=== PATIENT | female | born 1985 | race Caucasian/White ===

== ENCOUNTER 2020-11-15 12:32 | Observation (INO) | payer BC ==
[~2020-11-15] VITALS: Ht 154.9 cm; Wt 113.2 kg
[2020-11-15 14:16] LABS: BASO % 0.7 % (0.0-2.0); EOS # 0.1 (0.0-0.7); EOS % 1.3 % (0-4.0); GRAN # 3.7 (1.4-6.5); GRAN % 68.4 % (42.2-75.2); HEMOGLOBIN 11.1 g/dl (12.5-16.0); LYMPH # 1.4 (1.2-3.4); MEAN CELL VOLUME 83 fl (80.0-100.0); MEAN CORPUSCULAR HEMOGLOBIN 27 pg (27.0-31.0); MEAN CORPUSCULAR HGB CONC 33 g/dl (33.0-37.0); MEAN PLATELET VOLUME 9.5 fl (7.4-10.4); MONO # 0.2 (0.1-0.6); MONO % 4.4 % (1.7-9.3); PLATELET COUNT 271 K/mm3 (130-400); RED BLOOD COUNT 4.12 M/mm3 (4.10-5.30); REDCELL DISTRIBUTION WIDTH-CV 14.3 % (11.5-14.5)
[2020-11-15 14:17] LABS: HEMATOCRIT 34.1 % (37.0-47.0)
[2020-11-15 14:24] LABS: CALCIUM 9.3 mg/dL (8.4-10.2); CREATININE, serum 0.75 (0.52-1.25); POTASSIUM 3.9 mmol/L (3.4-5.0)
[2020-11-15 15:26] LABS: MUCOUS Present /lpf; PH 5 (5-8); URINE APPEARANCE Hazy; URINE BACTERIA Rare /hpf; URINE BILIRUBIN Negative (NEGATIVE); URINE BLOOD 2+ (NEGATIVE); URINE COLOR Yellow; URINE GLUCOSE Negative (NEGATIVE); URINE KETONE Negative (NEGATIVE); URINE LEUKOCYTE ESTERASE 3+ (NEGATIVE); URINE NITRATE Negative (NEGATIVE); URINE PROTEIN(semi-quant) Negative (NEGATIVE); URINE UROBILINOGEN Negative (NEGATIVE); URINE WBC 20-50 /hpf
[2020-11-15 15:34] LABS: COLLECTION METHOD CLEAN CATCH
[2020-11-15] MEDS ORDERED: PRILOSEC 20MG20 MG PO (16:48)
[2020-11-15] MEDS ORDERED: ERGOCALCIFER50000 IU PO (16:49)
[2020-11-15] MEDS ORDERED: ROBAXIN 50500 MG/TAB PO (16:49)
[2020-11-15] MEDS ORDERED: VIVLODEX5 MG PO (17:29)
[2020-11-15] MEDS ORDERED: CYANOCOBAL1000 MCG/1 IM (17:29)
[2020-11-15] MEDS ORDERED: WELLBUTRIN SR100 M1 PO (17:30)
--- NOTE | 2020-11-15 19:30 | NUR ---
Patient assessed at this time. Alert and oriented x 4, and able to make needs known. Reported level 3 pain to right buttock, radiating down right leg. Given PRN Motrin. Peripheral INT to right AC. Denies having SOB and dyspnea. LS CTA. Respirations even and unlabored. HRR. Capillary refill less than 3 seconds. Non-tenting skin turgor. BSAx4. Abdomen soft and non-tender. 1+ edema BLE. Voices no questions, needs, or concerns at this time. Resting in bed with call light within reach.
[2020-11-15 20:04] VITALS: BP 101/48; PULSE 75; TEMP 97.9
[2020-11-16 00:28] VITALS: BP 95/48; PULSE 63; TEMP 98.4
--- NOTE | 2020-11-16 02:05 | NUR ---
Patient complaining of pain to right buttock/hip/leg. Given PRN Morphine as requested for pain.
[2020-11-16 04:41] VITALS: BP 95/42; PULSE 60; TEMP 97.3
[2020-11-16 04:45] VITALS: BP 102/54
--- NOTE | 2020-11-16 04:52 | NUR ---
Patient got up to use bedside commode with one assist. Patient in excruciating pain with movement. Given PRN Morphine and Motrin at this time. Did report that Morphine earlier helped until she moved. Voices no further questions, needs, or concerns at this time. Resting in bed with call light within reach.
--- NOTE | 2020-11-16 05:55 | NUR ---
Patient received PRN pain medication as requested for pain this shift. Voices no questions, needs, or concerns at this time. Resting in bed with call light within reach.
[2020-11-16 07:17] VITALS: BP 102/45; PULSE 63; TEMP 97.9
[2020-11-16 07:57] LABS: HEMOGLOBIN 11.1 g/dl (12.5-16.0); MEAN CELL VOLUME 85 fl (80.0-100.0); MEAN CORPUSCULAR HEMOGLOBIN 27 pg (27.0-31.0); MEAN CORPUSCULAR HGB CONC 32 g/dl (33.0-37.0); MEAN PLATELET VOLUME 9.6 fl (7.4-10.4); PLATELET COUNT 255 K/mm3 (130-400); RED BLOOD COUNT 4.11 M/mm3 (4.10-5.30); REDCELL DISTRIBUTION WIDTH-CV 14.6 % (11.5-14.5)
[2020-11-16 08:01] LABS: HEMATOCRIT 34.9 % (37.0-47.0)
[2020-11-16 08:11] LABS: CALCIUM 9.1 mg/dL (8.4-10.2); CREATININE, serum 0.8 (0.52-1.25); POTASSIUM 4.2 mmol/L (3.4-5.0)
--- NOTE | 2020-11-16 09:02 | NUR ---
Initial visit; Patient thanked Lidar Analyst for offering encouragement and God's blessings.
--- NOTE | 2020-11-16 09:19 | NUR ---
AM SHIFT ASSESSMENT COMPLETED AT THIS TIME. MORNING MEDICATIONS ADMINISTERED BY SEWING DEPARTMENT SUPERVISOR. WILL CONTINUE TO MONITOR.
--- NOTE | 2020-11-16 12:02 | NUR ---
VENKATA met with the patient to discuss discharge plan. The patient lives in [place] with her , Mini (ph#[phone]), and three children. She reports independence with ADLs and does not have any DME. The patient's primary care provider is ANKIT Wells and she receives her medications from [facility]. She reports no difficulties obtaining her meds. The patient does not have a DPOA-HC, but she was interested in obtaining a form. VENKATA provided. The patient plans to return home with her family upon discharge. She states that OT worked with her and thought that she could benefit from a walker. VENKATA informed the patient on where she can obtain a walker. The patient states that her grandparents may have a walker and she would like to check with them first, before pursuing getting a new walker. SW to continue to follow.
[2020-11-16 12:31] VITALS: BP 109/50; PULSE 66; TEMP 97.9
[2020-11-16] MEDS ORDERED: MEDROL 4MG DOSPA4 MG PO (14:34)
[2020-11-16] MEDS ORDERED: NEURONTIN100 MG/CAP PO (14:34)
[2020-11-16] MEDS ORDERED: ZOFRAN ODT4 MG PO (14:35)
[2020-11-16] MEDS ORDERED: NORCO 325 MG-51 TAB PO (14:35)
--- NOTE | 2020-11-16 15:44 | NUR ---
The patient is to discharge back home with her family today, 11/16. PT recommended possibly a walker and home with family assist. SW followed up with the patient about the walker. The patient states that her grandparents do have a walker that she can use and will not need one ordered by SW. No additional needs at this time.
[2020-11-16 16:11] VITALS: BP 115/60; PULSE 58; TEMP 98.2
--- NOTE | 2020-11-16 16:55 | NUR ---
PATIENT GIVEN PRN PAIN MEDICATIONS THROUGHOUT THE DAY NEEDED. PATIENTS RIGHT AC INT DISCONTINUED PER PENDING DISCHARGE. TIP INTACT. PATIENT TOLERATED WELL. DISCHARGE INSTRUCTIONS REVIEWED WITH PATIENT. QUESTIONS SOUGHT AND ANSWERED. PATIENT PERSONAL BELONGINGS GATHERED. PATIENT TAKEN TO PERSONAL VEHICLE VIA WHEELCHAIR BY SURGICAL STAFF. PATIENT DISCHARGED.
== END 2020-11-16 16:55 | disposition home or self-care (01) ==
LOC: COL.ER 12:32 → SURG 16:56
PROVIDERS: Emergency Medicine; Physician Assistant; ADMIT Hospitalist
DX: M51.27 Other intervertebral disc displacement, lumbosacral region (principal); F41.9 Anxiety disorder, unspecified; E66.9 Obesity, unspecified
CPT/HCPCS: G0378; J0696; J1650; J1885; J2270; J2405